=== PATIENT | male | born 1995 | race Caucasian/White ===

== ENCOUNTER 2017-06-29 17:08 | Emergency (ER) | payer SELFPAY ==
[~2017-06-29] VITALS: Ht 170.2 cm; Wt 65.8 kg
[2017-06-29] MEDS ORDERED: FLUORESCEIN SOD(OPTH) 1 MG STRP OP ONE (17:30)
[2017-06-29] MEDS ORDERED: FLUORESCEIN SOD(OPTH) 1 MG STRP OP NR (18:00)
[2017-06-29 18:13] VITALS: BP 118/84
== END 2017-06-29 18:23 | disposition home or self-care (01) ==
LOC: ER 17:08
DX: T15.02XA Foreign body in cornea, left eye, initial encounter (principal); X58.XXXA Exposure to other specified factors, initial encounter
CPT/HCPCS: 99282